=== PATIENT | female | born 1990 | race African-American/Black ===

== ENCOUNTER 2024-04-30 15:00 | Emergency (ER) | payer MEDICARE, OTHER ==
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
[2024-04-30] MEDS: ACETAMINOPHEN TAB 325 MG TAB PO STA (16:52)
[2024-04-30 18:17] VITALS: BP 109/57; PULSE 84; RESP 16; TEMP 98.1
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
[2024-04-30] MEDS: diazePAM 5 MG TAB PO STA (18:45)
[2024-04-30 20:10] LABS: Appearance,Urine Cloudy (Clear); Bilirubin,Urine Negative (Negative); Blood,Urine Negative (Negative); Color,Urine Light Yellow; Glucose,Urine (UA) Negative (Negative); Ketones,Urine Negative (Negative); Leukocyte Esterase,Urine Large (Negative); Mucus,Urine Few /hpf; Nitrite,Urine Negative (Negative); Protein,Urine Trace (Negative); RBC,Urine 5 /hpf (0-5); Squamous Epithelial Cell,Urine 33 /hpf (0-4); WBC,Urine 28 /hpf (0-5)
[2024-04-30] MEDS: metroNIDAZOLE 500 MG TAB PO STA ×2 (22:00→22:01)
[2024-04-30] MEDS: AZITHROMYCIN 500 MG TAB PO STA (22:00)
[2024-04-30] MEDS: cefTRIAXone 1,000 MG VIAL (IM USE) IM STA (22:05)
[2024-05-01 12:33] LABS: C. trachomatis,PCR Negative (Negative)
[2024-05-01 12:42] LABS: N. gonorrhoeae,PCR Negative (Negative)
== END 2024-04-30 22:48 | disposition home or self-care (01) ==
LOC: EC 15:00
DX: T74.21XA Adult sexual abuse, confirmed, initial encounter (principal); R07.81 Pleurodynia; F17.200 Nicotine dependence, unspecified, uncomplicated; Z11.3 Encounter for screening for infections with a predominantly sexual mode of transmission; Y04.2XXA Assault by strike against or bumped into by another person, initial encounter
CPT/HCPCS: 81001; 81025; 87491; 87591; 87086; 71111; 99285; 96372; J0696